=== PATIENT | male | born 1970 | race Caucasian/White ===

== ENCOUNTER 2019-04-18 09:52 | Emergency (ER) | payer SELFPAY ==
[~2019-04-18] VITALS: Ht 165.1 cm; Wt 88.0 kg
[2019-04-18 09:57] VITALS: Ht 165.1 cm; Wt 88.0 kg
[2019-04-18 10:21] LABS: BASOPHIL % 0.2 % (0-2); PLATELET COUNT 88 x10^3mcL (130-400); RED CELL DISTRIBUTION WIDTH 13.3 % (11.5-14.5)
[2019-04-18 10:24] LABS: ALBUMIN 3.5 g/dL (3.4-5.0); BILIRUBIN TOTAL 1.11 mg/dL (0.20-1.00); CALCIUM 8.9 mg/dL (8.5-10.1); CARBON DIOXIDE 24.8 mmol/L (21-32); CREATININE SERUM 1.4 mg/dL (0.7-1.3); TOTAL PROTEIN, SERUM 8.1 g/dL (6.4-8.2)
[2019-04-18 13:13] VITALS: BP 124/82
== END 2019-04-18 13:13 | disposition home or self-care (01) ==
LOC: ED 09:52
DX: F10.239 Alcohol dependence with withdrawal, unspecified (principal); E87.6 Hypokalemia; R19.7 Diarrhea, unspecified
CPT/HCPCS: J2060; J2405; J7030

== ENCOUNTER 2020-06-25 11:17 | Emergency (ER) | payer MEDICAID ==
[~2020-06-25] VITALS: Ht 165.1 cm; Wt 88.5 kg
[~2020-06-25 11:17] MED LIST: LAC30L PO; LIB25 PO; ZES10 PO
[2020-06-25 11:34] VITALS: Ht 165.1 cm; Wt 88.5 kg
[2020-06-25 12:33] LABS: BASOPHIL % 0.8 % (0-2); PLATELET COUNT 184 x10^3mcL (130-400); RED CELL DISTRIBUTION WIDTH 13.9 % (11.5-14.5)
[2020-06-25 13:21] LABS: CARBON DIOXIDE 22.1 mmol/L (21-32); CHLORIDE SERUM 102 mmol/L (98-107); POTASSIUM SERUM 4.5 mmol/L (3.5-5.1); SODIUM SERUM 136 mmol/L (136-145)
[2020-06-25 13:22] LABS: ALBUMIN 3.6 g/dL (3.4-5.0); ALKALINE PHOSPHATASE 81 U/L (46-116); ALT/SGPT 38 U/L (16-63); BILIRUBIN TOTAL 0.74 mg/dL (0.20-1.00); CALCIUM 8.6 mg/dL (8.5-10.1); CREATININE SERUM 0.7 mg/dL (0.7-1.3); GFR1 > 60 mL/min; GLUCOSE SERUM 103 mg/dL (74-106); TOTAL PROTEIN, SERUM 7.8 g/dL (6.4-8.2)
[2020-06-25 13:33] LABS: AST/SGOT 39 U/L (15-37)
[2020-06-25 14:12] VITALS: BP 119/70
== END 2020-06-25 14:12 | disposition home or self-care (01) ==
LOC: ED 11:17
PROVIDERS: Student in an Organized Health Care Education/Training Program
DX: I10 Essential (primary) hypertension (principal); R20.2 Paresthesia of skin